=== PATIENT | female | born 1985 | race Caucasian/White ===

== ENCOUNTER 2022-06-26 14:44 | Emergency (ER) | payer SELFPAY ==
--- OUTSIDE RECORDS SUMMARY | 2022-06-26 14:48 | XMS REPORT | Continuity of Care Document ---
:1985 Author Organization [facility] t Address [address] [place] [address] Care Team Providers Name Role Phone G_Pappas Attending Clinician Unavailable Doctor Unassigned, [place] Attending Clinician Unavailable Dennis Coleman Attending Clinician [phone] DENNIS SANFORD Attending Clinician Unavailable G_Pappazulma Admitting Clinician Unavailable Payers Payer Name Policy Type Policy Number Effective Date Expiration Date S ource [place]ICA[place]OM[place] [id number] HEALTH PROGRAM (MEDICAID) Problems Condition Condition Condition Status Onset Resolution Last Treating Co mments Source Name Details Category Date Date Treatment Clinician Date 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: Un janice squamous squamous 1-19 Repeat ity of cell cell 00:00: cytology [place] changes of changes of 00 in 3 Me dical undetermin undetermin years Br anch ed ed significan significan ce (ASCUS) ce (ASCUS) on on cervical cervical cytology cytology with with negative negative high risk high risk human human papilloma papilloma virus virus (HPV) test (HPV) test result result Other Other Disease Active 2019-07 Univers general general 1-11 ity of counseling [place] and advice and advice 00 Me dical for for Branch contracept contracept ravin ravin management management No known No known Disease Unive rs active active ity of problems problems [facility] Allergies, Adverse Reactions, Alerts Allergy Allergy Status Severity Reaction(s) Onset Inactive Treating Comm ents Source Name Type Date Date Clinician NO KNOWN Drug Active Univers ALLERGIE Class ity of S [facility] Social History Social Habit Start Date Stop Date Quantity Comments Source History of tobacco Smoker Univer sity of use [facility] Exposure to Not sure University of SARS-CoV-2 (event) [facility] Cigarettes smoked 2020-05-19 2020-05-19 Univers ity of current (pack per 00:00:00 00:00:00 ) - Reported Branch Tobacco use and 2020-05-19 2020-05-19 Never used Universit y of exposure 00:00:00 00:00:00 [facility] Alcohol intake 2020-05-19 2020-05-19 Ex-drinker [facility] 00:00:00 00:00:00 (finding) [facility] Sex Ass[birth year] At [birth year] ONOFRE [facility]:00:00 [facility] Smoking Status Start Date Stop Date Source Unknown if ever smoked Universit y of [facility] Current every day smoker 2020-05-19 00:00:00 Uni versity of [facility] Medications Ordered Filled Start Stop Current Ordering Indication Dosage Frequency Signature Comments Components Source Medication Medication Date Date Medication? Clinician (SIG) Name Name sulfamethox 2019- Yes [id number] 1{tbl} Take 1 Univers azole-trime 2-25 tablet by ity of thoprim 00:00: mouth [place] 800-160 mg 00 every 12 Medic al per tablet (twelve) Branc h hours. mupirocin 2019-0 Yes [id number] Apply to Univers (BACTROBAN) 2-25 area(s) 3 ity of 2 % 00:00: (three) [place] ointment 00 times Medical daily. Branch sulfamethox 2019-0 Yes [id number] 1{tbl} Take 1 Univers azole-trime 2-25 tablet by ity of thoprim 00:00: mouth [place] 800-160 mg 00 every 12 Medic al per tablet (twelve) Branc h hours. mupirocin 2019-0 Yes [id number] Apply to Univers (BACTROBAN) 2-25 area(s) 3 ity of 2 % 00:00: (three) [place] ointment 00 times Medical daily. Branch sulfamethox 2019-0 Yes [id number] 1{tbl} Take 1 Univers azole-trime 2-25 tablet by ity of thoprim 00:00: mouth [place] 800-160 mg 00 every 12 Medic al per tablet (twelve) Branc h hours. mupirocin 2019-0 Yes [id number] Apply to Univers (BACTROBAN) 2-25 area(s) 3 ity of 2 % 00:00: (three) [place] ointment 00 times Medical daily. Branch sulfamethox Yes [id number] 1{tbl} Take 1 Univers azole-trime 2-25 tablet by ity of thoprim 00:00: mouth [place] 800-160 mg 00 every 12 Medic al per tablet (twelve) Branc h hours. mupirocin 2018- Yes [id number] Apply to Univers (BACTROBAN) 2-25 area(s) 3 ity of 2 % 00:00: (three) [place] ointment 00 times Medical daily. Branch Immunizations Ordered Filled Immunization Date Status Comments Sour e Immunization Name Name Influenza Virus 2020-05-11 Completed Universit y of Vaccine [place] .5 mL 00:00:00 [facility] IM 6+ MO Branch Influenza Virus 2020-05-11 Completed Universit y of Vaccine [place] .5 mL 00:00:00 [facility] IM 6+ MO [place] Influenza Virus 2020-05-11 Completed Universit y of Vaccine [place] .5 mL 00:00:00 [facility] IM 6+ MO [place] Vital Signs Vital Name Observation Time Observation Value Comments Source Systolic blood 2020-05-11 20:27:00 133 mm[Hg] Univer sity of pressure [facility] Diastolic blood 2020-05-11 20:27:00 90 mm[Hg] Unive rsity of pressure [facility] Heart rate 2020-05-11 20:27:00 93 /min [facility] Body temperature 2020-05-11 20:27:00 36.56 Anel [facility] Respiratory rate 2020-05-11 20:27:00 16 /min [facility] Body height 2020-05-11 20:27:00 160 cm [facility] Body weight 2020-05-11 20:27:00 49.244 kg [facility] BMI 2020-05-11 20:27:00 19.23 kg/m2 [facility] Procedures Procedure Date / Time Performing Clinician Source Performed AUTHORIZATION FOR 2020-05-24 06:01:00 Doctor Unassigned, No [facility] OF [facility]I Name Medical Branch FLU VACC ([id number]), 2020-05-11 21:21:55 Dennis Sanford [facility] MONTHS, IM, QUAD [facility] POCT TEST 2020-05-11 20:30:00 Dennis Sanford [facility] ASSIGNMENT OF BENEFITS 2020-05-11 19:59:40 Doctor Unassigned, [facility] acute [facility] Encounters Start End Encounter Admission Attending Care Care Encounter Source Date/Time Date/Time Type Type Clinicians Facility Department ID 2020-08-30 2020-08-30 Outpatient [facility] [id number] [facility] 00:00:00 00:00:00 2020-08-30 2020-08-30 Outpatient [facility] [id number] [facility] 00:00:00 00:00:00 2020-08-23 2020-08-23 Outpatient [facility] [id number] [facility] 00:00:00 00:00:00 2020-08-23 2020-08-23 Outpatient [facility] [id number] [facility] 00:00:00 00:00:00 2020-07-07 2020-07-07 Outpatient G_Pappas [facility] [id number] [place] 03:29:00 03:29:00 [facility] 2020-06-15 2020-06-15 Outpatient G_Pappas [facility] [id number] [place] 05:46:00 05:46:00 [facility] 2020-05-24 2020-05-24 Orders Doctor STANFORD [id number] 00:00:00 00:00:00 Only Unassigned, DAVID [id number] ity of [facility] [id number] [place] as [id number] [address] 2020-05-11 2020-05-11 Office Brisa TNSTACI [id number] Univers 14:04:21 15:05:09 Visit Dennis Lund ZOOGLER [id number] ity [facility] [id number] [place] as MATERNAL [id number] Med ical & CHILD [address] [place] [address] 2020-05-11 2020-05-11 Outpatient R LILO SANFORD [facility] [id number] Univers 13:30:00 13:30:00 DENNIS ity o f [facility] 2020-05-11 2020-05-11 Orders Doctor HIEN [id number] 00:00:00 00:00:00 Only Unassigned, DAVID [id number] ity of [place] [facility] [id number] [place] as [phone] [address] Results Test Description Test Time Test Comments Results Result Comments Source POCT TEST 2020-05-11 20:31:00 Test Item Value Reference Range Interpretation Comme nts POCT PREG (test code = 1605) Negative On board controls acceptable with C Line (test code = 3574) Yes POCT PREG LOT # (test code = 3575) POCT PREG TEST DATE (test code = 3576) [facility] [place] [id number] 20:31:00 Test Item Value Reference Range Interpretation Comments POCT PREG (test code = 1605) Negative On board controls acceptable with C Yes Line (test code = 3574) POCT PREG LOT # (test code = 3575) POCT PREG TEST DATE (test code = 3576) [facility] [place] [facility]
--- NOTE | 2022-06-26 16:18 | RAD REPORT ---
EXAM DESCRIPTION: RAD - Chest Pa And Lat (2 Views) - 06/26/2022 4:13 pm CLINICAL HISTORY: cough, sob COMPARISON: Chest Single View dated 07/22/2017; CHEST SINGLE VIEW dated 10/10/2008 FINDINGS: Lines: None. Lungs: No evidence of edema or pneumonia. Pleural: No significant pleural effusions or pneumothorax. Cardiac: The heart size is within normal limits. Mediastinum: Within normal limits. Bones: No acute fractures. Other: None IMPRESSION: No acute cardiopulmonary disease.
[2022-06-26] MEDS ORDERED: dexAMETHasone 10 MG/ML VIAL ONE (17:31)
[2022-06-26 17:54] LABS: SARS-COV-2 RT PCR NEGATIVE (NEGATIVE)
--- NOTE | 2022-06-26 18:05 | ER ---
Nurse's Notes [facility] Name: Shon Roy Age: 36 yrs Sex: Female : 1985 Arrival Date: 06/26/2022 Time: 14:45 Bed 12 Private MD: Diagnosis: Cough Presentation: 06/26 15:02 Chief complaint: Patient states: Cough, body aches off/on for 3 weeks. No major fever. ll1 Some vomiting. Coronavirus screen: Vaccine status: Patient reports receiving the 1st dose of the Covid vaccine. Client denies travel out of the [place] in the last 14 days. congestion, cough unrelated to allergies, difficulty breathing, muscle pain, Client presents with at least one sign or symptom that may indicate coronavirus-19. Standard/surgical mask placed on the client. Ebola Screen: Patient denies travel to an Ebola-affected area in the 21 days before illness onset. Initial Sepsis Screen: Does the patient meet any 2 criteria? HR > 90 bpm. No. Patient's initial sepsis screen is negative. Does the patient have a suspected source of infection? No. Patient's initial sepsis screen is negative. Risk Assessment: Do you want to hurt yourself or someone else? Patient reports no desire to harm self or others. Onset of symptoms was June 01, 2022. 15:02 Method Of Arrival: Ambulatory ll1 15:02 Acuity: ZORAN 4 ll1 Historical: - Allergies: 15:04 PENICILLINS; ll1 - PMHx: 17:04 None; em6 - PSHx: 15:04 None; ll1 - Immunization history:: Client reports receiving the 1st dose of the Covid vaccine. - Social history:: Smoking status: Patient reports the use of cigarette tobacco products, smokes one-half pack cigarettes per day. Screenin:45 [facility] ED Fall Risk Assessment (Adult) History of falling in the last 3 months, em6 including since admission No falls in past 3 months (0 pts) Confusion or Disorientation No (0 pts) Intoxicated or Sedated No (0 pts) Impaired Gait No (0 pts) Mobility Assist Device Used No (0 pt) Altered Elimination No (0 pt) Score/Fall Risk Level 0 - 2 = Low Risk Oriented to surroundings, Maintained a safe environment, Educated pt \T\ family on fall prevention, incl call for assistance when getting out of bed, Assessed \T\ reinforced patient's understanding of fall precautions, Provided non-skid footwear, Hourly rounding (assess needs \T\ fall precautionary measures) done, Used ambulatory aids as needed (educated on \T\ assisted with), Used gait belt as appropriate. Abuse screen: Denies threats or abuse. Nutritional screening: No deficits noted. Tuberculosis screening: No symptoms or risk factors identified. Assessment: 16:45 General: Appears in no apparent distress. Behavior is cooperative. Pain: Denies pain. em6 Neuro: Level of Consciousness is awake, alert, obeys commands, Oriented to person, place, time, situation, Reports headache frontal area. Cardiovascular: Patient's skin is warm and dry. Respiratory: Reports cough that is productive, Airway is patent Respiratory effort is even, unlabored, Respiratory pattern is regular, symmetrical. GI: No signs and/or symptoms were reported involving the gastrointestinal system. : No signs and/or symptoms were reported regarding the genitourinary system. EENT: No signs and/or symptoms were reported regarding the EENT system. Derm: No signs and/or symptoms reported regarding the dermatologic system. Musculoskeletal: Circulation, motion, and sensation intact. Range of motion: intact in all extremities. 17:45 Reassessment: Patient appears in no apparent distress at this time. No changes from em6 previously documented assessment. Patient and/or family updated on plan of care and expected duration. Pain level reassessed. Patient is alert, oriented x 3, equal unlabored respirations, skin warm/dry/pink. Vital Signs: 15:02 BP 125 / 94; Pulse 100; Resp 17; Temp 98.7; Pulse Ox 99% ; Weight 70.31 kg; Height 5 ll1 ft. 4 in. (162.56 cm); Pain 3/10; 17:05 BP 115 / 77; Pulse 81; Resp 18; Pulse Ox 100% on R/A; em6 18:15 BP 115 / 84; Pulse 81; Resp 18; Pulse Ox 100% ; em6 15:02 Body Mass Index 26.61 (70.31 kg, 162.56 cm) ll1 ED Course: 14:45 Patient arrived in ED. am2 14:51 Buck Chatman PA is PHCP[facility] 14:51 Luis Cardona MD is Attending Physician. [facility] 15:04 Triage completed. ll1 15:04 Arm band placed on. ll1 16:14 Chest Pa And Lat (2 Views) XRAY In Process Unspecified. EDMS 16:42 Camila Green, RN is Primary Nurse. em6 17:04 Bed in low position. Call light in reach. Side rails up X 1. Pulse ox on. NIBP on. Warm em6 blanket given. 17:05 COVID-19/FLU A+B Sent. em6 18:10 No provider procedures requiring assistance completed. Patient did not have IV access em6 during this emergency room visit. Administered Medications: 17:45 Drug: Decadron (dexamethasone) 10 mg Route: IM; Site: left gluteus; em6 18:10 Follow up: Response: No adverse reaction em6 Medication: 18:10 VIS not applicable for this client. em6 Outcome: 18:04 Discharge ordered by . mark 18:15 Discharged to home ambulatory. em6 18:15 Condition: stable 18:15 Discharge instructions given to patient, Instructed on discharge instructions, follow up and referral plans. medication usage, Demonstrated understanding of instructions, follow-up care, medications, Prescriptions given X 3. 18:16 Patient left the ED. em6 Signatures: Dispatcher [employer] EDMS Buck Chatman PA PA Lia Valencia am2 Enrrique Gupta, LASHANDA RN ll1 Camila Green, RN RN em6 Corrections: (The following items were deleted from the chart) 17:04 17:04 PMHx: druge abuse; em6 em6
--- NOTE | 2022-06-26 18:06 | EDPHYS ---
Physician Documentation [facility] Name: Shon Roy Age: 36 yrs Sex: Female : 1985 Arrival Date: 06/26/2022 Time: 14:45 Bed 12 Private MD: LINDSEY Physician Luis Cardona HPI: 06/26 15:12 This 36 yrs old Female presents to ER via Ambulatory with complaints of Cough. [facility] 15:12 The patient or guardian reports cough. Onset: The symptoms/episode began/occurred jm gradually, 3 week(s) ago. Modifying factors: The symptoms are alleviated by nothing, the symptoms are aggravated by nothing. This is a 36-year-old female with no known chronic medical conditions presents emerged part with cough, congestion again approximately 3 weeks. Patient was seen at [facility] and prescribed Tessalon Perles without any relief. Symptoms are worse in the evening.. Historical: - Allergies: 15:04 PENICILLINS; ll1 - PMHx: 17:04 None; em6 - PSHx: 15:04 None; ll1 - Immunization history:: Client reports receiving the 1st dose of the Covid vaccine. - Social history:: Smoking status: Patient reports the use of cigarette tobacco products, smokes one-half pack cigarettes per day. ROS: 15:12 Constitutional: Negative for fever, chills, and weight loss, Cardiovascular: Negative jm for chest pain, palpitations, and edema. 15:12 Respiratory: Positive for cough. 15:12 All other systems are negative. Exam: 15:12 Constitutional: This is a well developed, well nourished patient who is awake, alert, jmm and in no acute distress. Head/Face: atraumatic. Eyes: EOMI, no conjunctival erythema appreciated ENT: Moist Mucus Membranes Neck: Trachea midline, Supple Chest/axilla: Normal chest wall appearance and motion. Cardiovascular: Regular rate and rhythm. No edema appreciated 15:12 Abdomen/GI: Non distended Back: Normal ROM Skin: General appearance color normal MS/ Extremity: Moves all extremities, no obvious deformities appreciated, no edema noted to the lower extremities Neuro: Awake and alert Psych: Behavior is normal, Mood is normal, Patient is cooperative and pleasant 15:12 Respiratory: the patient does not display signs of respiratory distress, Respirations: normal, Breath sounds: are clear throughout. Vital Signs: 15:02 BP 125 / 94; Pulse 100; Resp 17; Temp 98.7; Pulse Ox 99% ; Weight 70.31 kg; Height 5 ll1 ft. 4 in. (162.56 cm); Pain 3/10; 17:05 BP 115 / 77; Pulse 81; Resp 18; Pulse Ox 100% on R/A; em6 18:15 BP 115 / 84; Pulse 81; Resp 18; Pulse Ox 100% ; em6 15:02 Body Mass Index 26.61 (70.31 kg, 162.56 cm) ll1 MDM: 15:12 Patient medically screened. [facility] 18:03 Data reviewed: vital signs, nurses notes. Counseling: I had a detailed discussion with deloris the patient and/or guardian regarding: the historical points, exam findings, and any diagnostic results supporting the discharge/admit diagnosis, lab results, radiology results, the need for outpatient follow up, to return to the emergency department if symptoms worsen or persist or if there are any questions or concerns that arise at home. ED course: Patient is alert nontoxic in appearance in the ED. No signs of respiratory stress. Patient advised follow-up PCP and otherwise given strict return precautions. Patient understood agrees plan of care.. 06/26 15:15 Order name: COVID-19/FLU A+B; Complete Time: 17:58 [facility] 06/26 15:15 Order name: Chest Pa And Lat (2 Views) XRAY; Complete Time: 16:27 [facility] Administered Medications: 17:45 Drug: Decadron (dexamethasone) 10 mg Route: IM; Site: left gluteus; em6 18:10 Follow up: Response: No adverse reaction em6 Disposition Summary: 06/26/22 18:04 Discharge Ordered Location: Home [facility] Condition: Stable [facility] Diagnosis - Cough [facility] Followup: [facility] - With: Private Physician - When: 2 - 3 days - Reason: Recheck today's complaints, Continuance of care, Re-evaluation by your physician Discharge Instructions: - Discharge Summary Sheet [facility] - Cough, Adult [facility] Forms: - Work release form [facility] - Medication Reconciliation Form [facility] - Thank You Letter [facility] - Antibiotic Education [facility] - Prescription Opioid Use [facility] Prescriptions: - promethazine-DM - take 10 milliliter by ORAL route every 4-6 hours As needed; 200 milliliter; jmm Refills: 0, Product Selection Permitted - Prednisone 20 mg Oral Tablet - take 3 tablets by ORAL route once daily for 5 days; 15 tablet; Refills: 0, [facility] Product Selection Permitted - Zithromax Z-Taiwo 250 mg Oral Tablet - take 1 tablet by ORAL route as directed for 5 days Day 1 - take two (2) tablets [facility] one time. Day 2, 3, 4 , 5 take one (1) tablet once daily.; 6 tablet; Refills: 0, Product Selection Permitted Signatures: Dispatcher [employer] EDBuck Krishna PA PA jmm Lewis, Lynsay, RN RN ll1 Camila Green RN RN em6 Corrections: (The following items were deleted from the chart) 17:04 17:04 PMHx: druge abuse; em6 em6
[2022-06-26 18:24] VITALS: TEMP 98.7
[2022-06-26 18:25] VITALS: O2SAT 100
[2022-06-26 18:26] VITALS: BP 115/84
== END 2022-06-26 18:16 | disposition home or self-care (01) ==
LOC: ER 14:44
DX: R05.9 Cough, unspecified (principal); F17.210 Nicotine dependence, cigarettes, uncomplicated; Z20.822 Contact with and (suspected) exposure to COVID-19; Z88.0 Allergy status to penicillin
CPT/HCPCS: 0240U; 71046; 96372; 99284; J1100

== ENCOUNTER 2024-05-26 00:01 | Emergency (ER) | payer SELFPAY ==
[2024-05-26] MEDS ORDERED: LIDOCAINE 1% 20 ML MDV ONE (00:30)
--- NOTE | 2024-05-26 01:42 | EDPHYS ---
Physician Documentation [facility] Name: Shon Roy Age: 38 yrs Sex: Female : 1985 Arrival Date: 05/26/2024 Time: 00:01 Bed 15 Private MD: ED Physician Frank Nath HPI: 05/26 00:25 This 38 yrs old Female presents to ER via Unassigned with complaints of FOREIGN BODY sb4 LODGED IN FINGER. 00:29 The patient or guardian reports the patient has a suspected foreign body, of the right sb4 middle finger. The reported likely foreign body is a fishhook. Onset: The symptoms/episode began/occurred 2 hour(s) ago. Current symptoms: foreign body sensation, pain. Treatment Prior to Arrival: tried to remove, but couldn't get out. The patient has not experienced similar symptoms in the past. The patient has not recently seen a physician. 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 - Infectious Disease History:: Denies. - Social history:: Smoking status: Patient reports the use of cigarette tobacco products, smokes one-half pack cigarettes per day. ROS: 00:29 Constitutional: Negative for fever, chills, and weight loss, sb4 00:29 Skin: Positive for per HPI, 00:29 All other systems are negative, Exam: 00:29 Constitutional: This is a well developed, well nourished patient who is awake, alert, sb4 and in no acute distress. Head/Face: Normocephalic, atraumatic. Eyes: Extra-ocular motions intact. Periorbital areas with no swelling, redness, or edema. ENT: Mucous membranes moist. 00:29 Skin: Tip of fish hook noted inside palmar aspect distal phalanx of middle finger, right hand. Vital Signs: 00:18 BP 153 / 106; Pulse 108; Resp 17 S; Pulse Ox 98% on R/A; Weight 56.7 kg; Height 5 ft. 3 ha1 in. ; 00:35 Temp 98.4; kj2 01:27 BP 142 / 98; Pulse 102; Resp 20; Pulse Ox 100% on R/A; kj2 01:55 BP 145 / 89; Pulse 88; Resp 18; Temp 97.9; Pulse Ox 100% on R/A; kj2 00:18 Body Mass Index 22.14 (56.70 kg, 160.02 cm) ha1 Procedures: 01:44 Foreign Body Removal: a fishhook, from the right palmar aspect of distal phalanx of sb4 right middle finger, by using a hemostat, incising to remove, using lidocaine 1% without epinephrine to anesthesize the area, Dressinx4s were used to dress the wound, The patient tolerated the removal well. MDM: 00:18 Medical Screening Exam initiated sb4 00:29 Independent interpretation of the following test(s) in the Emergency Department X-Ray: sb4 My interpretation is my interpretation of the right hand xray image is embedded fish hook in distal phalanx of middle finger, right hand. 01:44 Data reviewed: vital signs, nurses notes, radiologic studies, and as a result, I will sb4 discharge patient. Counseling: I had a detailed discussion with the patient and/or guardian regarding the historical points, exam findings, and any diagnostic results supporting the discharge/admit diagnosis, radiology results, the need for outpatient follow up, for definitive care, to return to the emergency department if symptoms worsen or persist or if there are any questions or concerns that arise at home. 05/26 00:24 Order name: Hand Right 3 View XRAY sb4 Administered Medications: 01:37 Drug: Lidocaine Infiltration (1 %) 20 ml 20 ml Infiltration once; to bedside {Note: kj2 administered by provider.} Volume: 20 ml; Route: Infiltration; 01:55 Follow up: Response: No adverse reaction kj2 Disposition: 02:56 Co-signature as Attending Physician, Frank Nath MD I reviewed the patient's care rt provided by the Advanced Practice Provider and agree with the diagnosis and treatment plan. Disposition Summary: 05/26/24 01:42 Discharge Ordered Notes: Location: Home sb4 Problem: new sb4 Symptoms: have improved sb4 Condition: Stable sb4 Diagnosis - Puncture wound with foreign body of right hand, initial encounter sb4 Followup: sb4 - With: Private Physician - When: As needed - Reason: Recheck today's complaints, Re-evaluation by your physician Discharge Instructions: - Discharge Summary Sheet sb4 - Puncture Wound, [id number] sb4 - [address] Removal sb4 Forms: - Antibiotic Education sb4 - Patient Portal Instructions sb4 - Leadership Thank You Letter sb4 Prescriptions: - Bactrim DS 800-160 mg Oral Tablet - take 1 tablet ORAL route every 12 hours for 7 days; 14 tablet; Refills: 0, sb4 Product Selection Permitted Signatures: Dispatcher [employer] EDMS Jovana Winters, RN RN ha1 Annie Thomas PA-C PAJuli sb4 Frank Nath MD MD rt Kena Thomas RN RN kj2 Corrections: (The following items were deleted from the chart) 00:24 00:24 Hand Right 3 View+RAD.RAD.BRZ ordered. EDMS EDMS
--- NOTE | 2024-05-26 01:42 | ER ---
Nurse's Notes [facility] Name: Shon Roy Age: 38 yrs Sex: Female : 1985 Arrival Date: 05/26/2024 Time: 00:01 Bed 15 Private MD: Diagnosis: Puncture wound with foreign body of right hand, initial encounter Presentation: 05/26 00:18 Chief complaint: Patient states: I WAS DOING FISHING EARLY AND THE FISH HOOK GOT IN MY ha1 MIDDLE FINGER OF RIGHT HAND. I PULLED THE FISH HOOK OUT BUT I THINK I GOT SOMETHING IN IT. 00:18 Coronavirus screen: Vaccine status: At this time, the client does not indicate any ha1 symptoms associated with coronavirus-19. Ebola Screen: No symptoms or risks identified at this time. Initial Sepsis Screen: Does the patient meet any 2 criteria? No. Patient's initial sepsis screen is negative. Does the patient have a suspected source of infection? No. Patient's initial sepsis screen is negative. Risk Assessment: Do you want to hurt yourself or someone else? Patient reports no desire to harm self or others. Onset of symptoms was May 26, 2024. 00:18 Method Of Arrival: Ambulatory ha1 00:18 Acuity: ZORAN 4 ha1 [employer]: 01:43 LMP 04/27/2024, unknown kj2 Historical: - Allergies: 00:30 PENICILLINS; ha1 - Immunization history:: Adult Immunizations up to date. - Infectious Disease History:: Denies. - Social history:: Smoking status: Patient reports the use of cigarette tobacco products, smokes one-half pack cigarettes per day. Screenin:38 [facility] ED Fall Risk Assessment (Adult) History of falling in the last 3 months, kj2 including since admission No falls in past 3 months (0 pts) Confusion or Disorientation No (0 pts) Intoxicated or Sedated No (0 pts) Impaired Gait No (0 pts) Mobility Assist Device Used No (0 pt) Altered Elimination No (0 pt) Score/Fall Risk Level 0 - 2 = Low Risk Maintained a safe environment, Hourly rounding (assess needs \T\ fall precautionary measures) done. Abuse screen: Denies threats or abuse. Denies injuries from another. Nutritional screening: No deficits noted. Tuberculosis screening: No symptoms or risk factors identified. Assessment: 00:37 General: Appears in no apparent distress. uncomfortable, Behavior is calm, cooperative. kj2 Pain: Complains of pain in 3rd digit, right hand Pain currently is 9 out of 10 on a pain scale. Neuro: Level of Consciousness is awake, alert, obeys commands, Oriented to person, place, time, situation. Cardiovascular: Patient's skin is warm and dry. Respiratory: Airway is patent Respiratory effort is even, unlabored. GI: No signs and/or symptoms were reported involving the gastrointestinal system. : No signs and/or symptoms were reported regarding the genitourinary system. 01:24 Reassessment: Patient appears in no apparent distress at this time. Patient and/or kj2 family updated on plan of care and expected duration. Pain level reassessed. Patient is alert, oriented x 3, equal unlabored respirations, skin warm/dry/pink. Vital Signs: 00:18 BP 153 / 106; Pulse 108; Resp 17 S; Pulse Ox 98% on R/A; Weight 56.7 kg; Height 5 ft. 3 ha1 in. ; 00:35 Temp 98.4; kj2 01:27 BP 142 / 98; Pulse 102; Resp 20; Pulse Ox 100% on R/A; kj2 01:55 BP 145 / 89; Pulse 88; Resp 18; Temp 97.9; Pulse Ox 100% on R/A; kj2 00:18 Body Mass Index 22.14 (56.70 kg, 160.02 cm) ha1 ED Course: 00:02 Patient arrived in ED. jj6 00:03 Annie Thomas PA-C is PHCP. sb4 00:03 Frank Nath MD is Attending Physician. sb4 00:27 Kena Thomas, LASHANDA is Primary Nurse. kj2 00:30 Triage completed. ha1 00:38 Patient has correct armband on for positive identification. Bed in low position. Call kj2 light in reach. Provided Education on: call light. 00:40 Arm band placed on Patient placed in an exam room. kj2 01:04 Hand Right 3 View XRAY In Process Unspecified. EDMS 01:44 Assist provider with laceration repair Set up tray. kj2 01:45 Patient did not have IV access during this emergency room visit. kj2 Administered Medications: 01:37 Drug: Lidocaine Infiltration (1 %) 20 ml 20 ml Infiltration once; to bedside {Note: kj2 administered by provider.} Volume: 20 ml; Route: Infiltration; 01:55 Follow up: Response: No adverse reaction kj2 Medication: 01:44 VIS not applicable for this client. kj2 Outcome: 01:42 Discharge ordered by MD. [email or web address] 01:45 Condition: stable kj2 01:45 Discharged to home ambulatory, kj2 01:45 Discharge instructions given to patient, 02:04 Patient left the ED. kj2 Signatures: Dispatcher [employer] EDMS Sharri Valerio [email or web address] Jovana Winters, RN RN ha1 Annie Thomas PAWanC PA-C [email or web address] Kena Thomas, RN RN kj2
--- NOTE | 2024-05-26 06:10 | RAD REPORT ---
EXAM: XR Right Hand Complete, 3 or More Views CLINICAL HISTORY: The patient is 38 years old and is Female; fb distal middle finger TECHNIQUE: Frontal, lateral and oblique views of the right hand. COMPARISON: No relevant prior studies available. FINDINGS: BONES/JOINTS: Unremarkable. No acute fracture. No dislocation. SOFT TISSUES: A 0.7 cm metallic foreign body within the soft tissues of the tip of the third digi t is present. IMPRESSION: A 0.7 cm metallic foreign body (small hook) within the soft tissues of the tip of the third digit i s present. No underlying acute bony abnormality. Electronically signed by: Abby Carson MD 05/26/2024 02:29 AM [facility] Due to temporary technical issues with the PACS/Fats[employer] reporting system, reports are being gina d by the in-house radiologist without review as a courtesy to ensure prompt reporting the interpreting radiologist is fully responsible for the content of the report. Transcribed Date/Time: 05/26/2024 6:09 AM
[2024-05-26 09:10] VITALS: O2SAT 100
[2024-05-26 09:11] VITALS: BP 145/89; TEMP 97.9
== END 2024-05-26 02:04 | disposition home or self-care (01) ==
LOC: ER 00:01
DX: S61.242A Puncture wound with foreign body of right middle finger without damage to nail, initial encounter (principal)
CPT/HCPCS: 99283; J2003